=== PATIENT | female | born 1945 | race Caucasian/White ===

== ENCOUNTER 2016-08-16 07:40 | Emergency (ER) | payer MEDICARE, BC ==
[2016-08-16 07:49] VITALS: BP 151/80
[2016-08-16] MEDS ORDERED: Fluorescein Sodium TOPICAL* 1 MG TEST ONE (08:18)
[2016-08-16] MEDS ORDERED: BSS OPTH.SOL* BTL ONE (08:19)
--- NOTE | 2016-08-16 08:43 | UC ---
Shagufta Bynum Matthew, scribed for KaciEdmundo jane MD on 08/16/16 at 0828 . Eye Complaint HPI - HPI Summary HPI Summary: Nurses Note; Woke up today with left eye crusted over. MD Note; A 70 y/o female presents with left eye crusting. Vital signs stable, BP 155/80, pulse oxygen 100%. Patient has a Hx of HTN and is allergic to clindamycin. In Room Note; A 70 y/o female presents to [facility] with left eye crusting since this morning. She wears contacts, but denies overuse. She states that her left eye felt irradiated yesterday, so she took off her contacts at approximately 13: 00. The patient has reusable contacts that she removes nightly and used a new pair yesterday. She has no Hx of eye complaints. She has not had conjunctivitis since approximately 15 years ago. She denies eye pain. - History of Current Complaint Chief Complaint: UCEye Stated Complaint: EYE COMPLAINT Time Seen by Provider: 08/16/16 07:59 Hx Obtained From: Patient ?: No Onset/Duration: Sudden Onset, Lasting Hours, Still Present Timing: Constant Severity Initially: Mild Severity Currently: Mild Pain Intensity: 0 Pain Scale Used: 0-10 Numeric Location of Injury: Conjunctiva - Allergies/Home Medications Allergies/Adverse Reactions: Allergies Allergy/AdvReac Type Severity Reaction Status Date / Time Clindamycin Allergy SEVERE Verified 10/18/15 09:56 DIARRHEA, INTESINAL PROBLEMS PMH/Surg Hx/FS Hx/Imm Hx Endocrine History Of: Denies: Diabetes, Thyroid Disease Cardiovascular History Of: 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 TONSILLECTOMY- AGE 12. Trigger Thumb 2016 - Family History Known Family History: Positive: Hypertension - Social History Occupation: Retired Alcohol Use: Weekly Alcohol Amount: 2 GLASSES OF WINE WEEKLY Substance Use Type: None Smoking Status (MU): Never Smoked Tobacco - Immunization History Most Recent Influenza Vaccination: 2016/2017 season Review of Systems Constitutional: Negative Skin: Negative Eyes: Eye Redness - left, Other - Left eye crusting ENT: Negative Respiratory: Negative Cardiovascular: Negative Gastrointestinal: Negative Genitourinary: Negative Motor: Negative Neurovascular: Negative Musculoskeletal: Negative Neurological: Negative Psychological: Negative All Other Systems Reviewed And Are Negative: Yes Physical Exam Triage Information Reviewed: Yes Appearance: Well-Appearing, No Pain Distress, Well-Nourished Vital Signs: Initial Vital Signs Temp 97.4 F 08/16/16 07:46 Pulse 114 08/16/16 07:46 Resp 18 08/16/16 07:46 BP 151/80 08/16/16 07:46 Pulse Ox 100 08/16/16 07:46 Vital Signs Reviewed: Yes Eyes: Positive: Other: - Mild injection of the left sclera and bulbar conjunctiva; Cornea clear, no hypema, anterior chamber is normal, PERRL, No carolin limbal redness ENT: Positive: Hearing grossly normal, Pharynx normal, TMs normal. Negative: Muffled/hoarse voice Neck: Positive: Supple, Nontender Respiratory: Positive: Chest non-tender, Lungs clear, Normal breath sounds, No respiratory distress Cardiovascular: Positive: RRR, No Murmur Abdomen Description: Positive: Nontender, No Organomegaly Bowel Sounds: Positive: Present Musculoskeletal: Positive: Strength Intact, ROM Intact Neurological: Positive: Alert Psychological: Positive: Age Appropriate Behavior - Additional Comments No uptake of fluorescein dye. Two drops placed on the inside of the lower lid using normal saline. No evidence of abrasion or corneal ulcer. Eye Complaint Course/Dx - Course Course Of Treatment: Discussed course of treatment, every 2 hours for 2 days then four times a day for 5-[address] the medication once a day in the right eye for 5-7 days. - Differential Dx/Diagnosis Differential Diagnosis/HQI/PQRI: Conjunctivitis, Corneal Abrasion, Other - Corneal Ulcer Provider Diagnoses: Conjunctivitis of the left eye Discharge - Discharge Plan Condition: Stable Disposition: HOME Prescriptions: Erythromycin (Ophth) [Ilotycin] 5 mg OPHTHALMIC QID #1 oin MDD 10 doses Patient Education Materials: Conjunctivitis (ED) Referrals: Rosario Umanzor MD [Primary Care Provider] - Additional Instructions: WE DISCUSSED: 1. Your contact lens has irritated your left eye and caused an infection. 2. Use erythromycin ointment, every 2 hours for 2 days when you are awake and then four times a day for a total of 5 to 7 days OR one day after this has completely cleared up. 3. Don't use contact lenses until this is completely cleared up. 4. One dose before sleep in you right eye for the next 3 days to prevent infection from spreading. 5. Call us at any time for any questions or concerns. The documentation as recorded by the milagrosibShagufta welch Matthew accurately reflects the service I personally performed and the decisions made by , Edmundo Steen MD.
== END 2016-08-16 08:46 | disposition home or self-care (01) ==
LOC: UCEAST 07:40
DX: H10.32 Unspecified acute conjunctivitis, left eye (principal); I10 Essential (primary) hypertension; Z88.1 Allergy status to other antibiotic agents
CPT/HCPCS: 99212; A9270-GY; G0463

== ENCOUNTER 2017-12-15 14:23 | Emergency (ER) | payer MEDICARE, BC ==
--- OUTSIDE RECORDS SUMMARY | 2017-12-15 14:28 | XMS REPORT ---
:1945 External Reference #:[id number] Author Organization [employer] Address [address] [place] [address] Phone [phone] Care Team Providers Name Role Phone Rosario Umanzor M.D. Primary Care Physician Unavailable Payers Type Date Identification Numbers Payment Provider Subscriber Medicare Primary Effective: Policy Number: Medicare - NGS Alexa Gunterberg 2012 [id number] PayID: [id number] [address] [place] [address] Medigap Part B Effective: Policy Number: BS [place] [employer] Alexa Gunterberg 2011 [id number] PayID: [id number] [address] [address] [place] [address] Problems Date Description Provider Status Onset: Essential hypertension Active Onset: 10/08/2016 Angular blepharoconjunctivitis Gwen Fortune O.D. Active Onset: 09/19/2015 Ptosis of eyelid Gwen Fortune O.D. 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 night at bedtime Lisinopril Active Tablets 2.5mg Unknown 000 Multi For Her Active Tablets Unknown 000 Calcium 1000 + Active Tablets 1000-800mg Unknown D 000 -Unit Vitamin D Active Capsules 400Unit 1 tab po Unknown (Cholecalcifero 000 daily l) Erythromycin Hx Ointment 5mg/GM 1Tube apply H10.523 Gwen Ceja 017 - thin [facility], strip to O.D. 017 all four eyelid margins x every night for 2 weeks Neomycin/Polymy Hx Ointment 3.5-86253- 3.500g apply H10.523 Gwen Ceja young/Dexamethaso 017 - 0.1 m 1/4" in [facility], ne both eyes O.D. 017 at bedtime for 2 weeks. Fish Oil Hx Capsules 600mg Unknown 000 - 016 Results Description No Information Procedures Date CPT Code Description Status 11/26/2016 33260 Determination Of Refractive State Completed 11/26/2016 16139 Est Patient Comprehensive Exam Completed 10/08/2016 52991 Est Patient Intermediate Exam Completed 09/19/2015 51695 Determination Of Refractive State Completed 09/19/2015 53167 Est Patient Comprehensive Exam Completed 09/10/2014 11910 Determination Of Refractive State Completed 09/10/2014 23044 Est Patient Comprehensive Exam Completed 07/02/2013 07813 Computerized Corneal Topography Completed 05/20/2013 97212 Est Patient Comprehensive Exam Completed 05/20/2013 202 Refit SCL Completed 11/19/2011 79908 Determination Of Refractive State Completed 11/19/2011 07634 New Patient Comprehensive Exam Completed 11/19/2011 203 Refit Soft Toric/Monovision Completed Encounters Type Date Location Provider CPT E/M Dx Office Visit 10/18/2016 Yaron Farmer MD, Gwen Fortune, [id number] H10.523 10:40a pc O.D. H25.813 H02.401 Office Visit 07/02/2013 10:30a Yaron Farmer MD, [place]wen [place], [address] 743.41 O.D. 743.41 Plan of Care 12/04/2017 - Gwen Fortune O.D.H25.813 Combined forms of age-related cataract, bilateralComments:You have been diagnosed with cataracts. If you are happy with your vision as it is now, then we willsee you at your next scheduled appointment. If you feel like your vision is getting worse before your scheduled appointment, please call Yasmin or Annamarie at [phone].Follow up:1 Year Follow Up / cl's fitH02.401 Unspecified ptosis of right eyelid
[2017-12-15 14:50] VITALS: BP 131/69
--- NOTE | 2017-12-15 15:10 | ED ---
Influenza-Like Illness - HPI Summary HPI Summary: Patient here with flulike symptoms since . She reports she developed a headache, fatigue, reduced appetite. Headache is over the frontal and bilateral yazidi area does not radiate to the back of her head and no neck pain/ stiffness. Fever of 100F yesterday - nothing today. She denies photophobia, change in vision, numbness, tingling, weakness, chest pain, dizziness. She is here today she's noticed a rash on her right lower back that is red and raised. Nontender and no pruritus. She is in the garden quite a bit and is concerned she may have had a tick bite. Immunizations are up-to-date. No history of Lyme disease. - History of Current Complaint Chief Complaint: UCGeneralIllness Time Seen by Provider: 12/15/17 14:41 Hx Obtained From: Patient, Family/Cold Press Loader - - Allergy/Home Medications Allergies/Adverse Reactions: Allergies Allergy/AdvReac Type Severity Reaction Status Date / Time clindamycin Allergy Diarrhea Verified 12/15/17 14:42 Home Medications: Home Medications Acetaminophen [Acetaminophen Extra Strength] 1,000 mg PO ONCE 12/15/17 [History Confirmed 12/15/17] PMH/Surg Hx/FS Hx/Imm Hx Previously Healthy: Yes Endocrine/Hematology History: Denies: Hx Anticoagulant Therapy, Hx Diabetes, Hx Thyroid Disease, Autoimmune Disease Cardiovascular History: Reports: Hx Hypertension - ON MEDICATION FOR- WHITE COAT SYNDROME Respiratory History: Denies: Hx Asthma, Hx Chronic Obstructive Pulmonary Disease (COPD) GI History: Denies: Hx Ulcer Musculoskeletal History: Reports: Hx Tendonitis - LEFT THUMB Sensory History: Reports: Hx Contacts or Glasses Denies: Hx Hearing Aid Opthamlomology History: Reports: Hx Contacts or Glasses Neurological History: Denies: Hx Headaches - Cancer History Hx Chemotherapy: No Hx Radiation Therapy: No - Surgical History Surgery Procedure, Year, and Place: COLONOSCOPY- NO ANESTHESIA. TONSILLECTOMY- AGE 12. Trigger Thumb 2016 Hx Anesthesia Reactions: No - Immunization History Immunizations Up to Date: Yes Infectious Disease History: No Infectious Disease History: Denies: Hx Hepatitis, Hx Human Immunodeficiency Virus (HIV), Hx of Known/ Suspected MRSA, Hx Shingles, History Other Infectious Disease, Traveled Outside the [place] in Last 30 Days - Family History Known Family History: Positive: Hypertension - Social History Occupation: Retired Lives: With Family Alcohol Use: Weekly Alcohol Amount: 2 GLASSES OF WINE WEEKLY Hx Substance Use: No Substance Use Type: Reports: None Hx Tobacco Use: No Smoking Status (MU): Never Smoked Tobacco Review of Systems Positive: Fatigue. Negative: Fever, Chills Eyes: Negative ENT: Negative Cardiovascular: Negative Respiratory: Negative Gastrointestinal: Other - reduced appetite Genitourinary: Negative Musculoskeletal: Negative Positive: Rash Positive: Headache. Negative: Weakness, Paresthesia, Numbness, Syncope, Slurred Speech Psychological: Normal All Other Systems Reviewed And Are Negative: Yes Physical Exam Triage Information Reviewed: Yes Vital Signs On Initial Exam: Initial Vitals Temp Pulse Resp BP Pulse Ox 98.1 F 85 18 131/69 99 12/15/17 14:44 12/15/17 14:44 12/15/17 14:44 12/15/17 14:44 12/15/17 14:44 Vital Signs Reviewed: Yes Appearance: Positive: Well-Appearing, No Pain Distress, Well-Nourished Skin: Positive: Warm, Skin Color Reflects Adequate Perfusion, Dry - 6cm area of well defined erythematous, slightly indurated tissue over Rt loer back (just above SI joint) - NTTP, no vesicles, no lesions, no drainage. Central pinpoint scab (could be entrance wound) - no clearing w/ central spot but could be variation of EM rash given hx and other sx Head/Face: Positive: Normal Head/Face Inspection Eyes: Positive: Normal, EOMI, Conjunctiva Clear ENT: Positive: Normal ENT inspection, Hearing grossly normal, Pharynx normal - mucosa moist. Negative: Nasal congestion Neck: Positive: Supple, Nontender, No Lymphadenopathy - including cervical, axillary, popliteal, femoral Respiratory/Lung Sounds: Positive: Clear to Auscultation, Breath Sounds Present Cardiovascular: Positive: Normal, RRR, S1, S2. Negative: Murmur, Rub Abdomen Description: Positive: Soft Bowel Sounds: Positive: Present Musculoskeletal: Positive: Normal, Strength/ROM Intact Neurological: Positive: Normal, Sensory/Motor Intact, Alert, Oriented to Person Place, Time, CN Intact II-III, Reflexes Intact Psychiatric: Positive: Normal Diagnostics - Vital Signs Vital Signs Temp Pulse Resp BP Pulse Ox 12/15/17 14:44 98.1 F 85 18 131/69 99 - Laboratory Lab Statement: Any lab studies that have been ordered have been reviewed, and results considered in the medical decision making process. Flu Symptom Course/Dx - Course Course Of Treatment: Suspect Lyme dz - will start doxycycline and advise close f /u w/ PCP this week for monitoring of rash, sx in the event she does not improve - may need additional labs, etc. Also advised to f/u w/ ID specialist unless PCP advises otherwise - Diagnoses Provider Diagnoses: Lyme disease Discharge - Sign-Out/Discharge Documenting (check all that apply): Discharge/Admit/Transfer - Discharge Plan Condition: Stable Disposition: HOME Prescriptions: DOXYcycline CAP(*) [DOXYcycline 100MG CAP(*)] 100 mg PO BID #42 cap Patient Education Materials: Lyme Disease (ED) Referrals: Rosario Umanzor MD [Primary Care Provider] - Sarah WALTERS,Daniel Link [Medical Doctor] - Additional Instructions: Follow-up with PCP this week for monitoring of rash, symptoms, etc. You may need additional labs, etc if symptoms do not improve. Also advise following up with infectious disease specialist unless PCP advises otherwise. *If you feel worse, go to the ED - Billing Disposition and Condition Condition: STABLE Disposition: HOME
== END 2017-12-15 15:27 | disposition home or self-care (01) ==
LOC: UCEAST 14:23
DX: A69.20 Lyme disease, unspecified (principal); I10 Essential (primary) hypertension; Z88.1 Allergy status to other antibiotic agents; Z82.49 Family history of ischemic heart disease and other diseases of the circulatory system
CPT/HCPCS: 99212; G0463